=== PATIENT | female | born 1995 | race Caucasian/White ===

== ENCOUNTER → 2021-04-18 20:40 | Observation (INO) | END | disposition home or self-care (01) | LOC: 1NENULAB | PROVIDERS: ADMIT Obstetrics & Gynecology; ATTEND Obstetrics & Gynecology ==

== ENCOUNTER 2021-04-23 22:32 | Inpatient (IN) ==
[~2021-04-23 22:32] MED LIST: Famotidine 20 MG/2 ML VIAL IVP PRN; Metoclopramide 10 MG/2 ML VIAL IVP PRN; Naloxone 0.4 MG/ML INJ IVP PRN; Oxytocin 20 units/ LR 1000 mL 20 UNIT/1,000 ML BAG IVC SCH
[2021-04-23] MEDS ORDERED: Ringers Solution, Lactated 1,000 ML ONE (22:38)
[2021-04-23 23:25] LABS: Basophils # 0.1 K/mcL (0.0-0.2); Basophils % 0.4 %; Eosinophils # 0.2 K/mcL (0.0-0.6); Eosinophils % 1.5 %; Hematocrit 37.2 % (35.3-44.9); Hemoglobin 11.8 g/dL (11.5-15.4); Immature Granulocytes % 0.4 % (0-4); Lymphocytes # 2.3 K/mcL (0.6-4.6); Lymphocytes % 18.6 %; Mean Corpuscular HGB Conc 31.7 g/dL (31.6-35.5); Mean Corpuscular Hemoglobin 27.7 pg (28.0-33.3); Mean Corpuscular Volume 87.3 fL (83.0-100.0); Monocytes % 8.5 %; Neutrophils # 8.7 K/mcL (1.6-8.9); Platelet Count 243 K/mcL (140-400); Red Blood Count 4.26 M/mcL (3.82-4.97); Red Cell Distribution Width 12.7 % (11.5-14.5); Segmented Neutrophils % 70.6 %; White Blood Count 12.3 K/mcL (4.3-11.1)
[2021-04-23] MEDS ORDERED: *HR* FentaNYL (PF) 100 MCG/2 ML VIAL EP ONE (23:30)
[2021-04-23] MEDS ORDERED: Epidural Premix (fent/bupiv) 110 ML EP SCH (23:30)
[2021-04-23] MEDS ORDERED: EPHEDrine 50 MG/ML VIAL IVP PRN (23:30)
[2021-04-23] MEDS ORDERED: Ropivacaine/PF 0.2% 20 ML VIAL EP ONE (23:30)
[2021-04-23 23:31] LABS: Amphetamine Screen,Urine Negative ng/mL (Cutoff=1000); Barbiturate Screen,Urine Negative ng/mL (Cutoff=200); Benzodiazepines Screen,Urine Negative ng/mL (Cutoff=200); Cannabinoid Screen,Urine Negative ng/mL (Cutoff = 50); Cocaine Screen,Urine Negative ng/mL (Cutoff= 300); Opiate Screen,Urine Negative ng/mL (Cutoff=300); Phencyclidine Screen,Urine Negative ng/mL (Cutoff=25)
[2021-04-23] MEDS ORDERED: Epidural Premix (fent/bupiv) 110 ML EP ONE (23:36)
[2021-04-24] MEDS ORDERED: Ringers Solution, Lactated 1,000 ML ONE ×2 (00:02→01:29)
[2021-04-24] MEDS ORDERED: 0.9 % Sodium Chloride 1,000 ML ONE (00:39)
[2021-04-24] MEDS ORDERED: Lanolin 7 G OINT...G. TP PRN (08:45)
[2021-04-24] MEDS ORDERED: Measles/Mumps/Rubella Vacc 0.5 ML VIAL SQ PRN (08:45)
[2021-04-24] MEDS ORDERED: Oxytocin 20 units/ LR 1000 mL 20 UNIT/1,000 ML BAG IVC SCH (08:45)
[2021-04-24] MEDS ORDERED: Benzocaine/Menthol 56 GM AEROSOL SPRAY TP PRN (08:45)
[2021-04-24] MEDS ORDERED: Ondansetron ODT 4 MG TAB.RAPDIS SL PRN (08:45)
[2021-04-24] MEDS: Prenatal Vit/FA 1 EACH TABLET PO SCH (09:56)
[2021-04-24] MEDS: Acetaminophen 325 MG TABLET PO SCH ×2 (18:47→23:04)
[2021-04-24] MEDS: Ibuprofen 600 MG TABLET PO SCH ×3 (18:47→23:05)
[2021-04-25 05:15] VITALS: TEMP 97.9
[2021-04-25] MEDS: Ibuprofen 600 MG TABLET PO SCH ×2 (05:45→08:39)
[2021-04-25] MEDS: Acetaminophen 325 MG TABLET PO SCH (05:45)
[2021-04-25 05:51] LABS: Basophils % 0.3 %; Eosinophils # 0.2 K/mcL (0.0-0.6); Eosinophils % 1.9 %; Hematocrit 35.7 % (35.3-44.9); Hemoglobin 11.7 g/dL (11.5-15.4); Immature Granulocytes % 0.4 % (0-4); Lymphocytes # 2.6 K/mcL (0.6-4.6); Mean Corpuscular HGB Conc 32.8 g/dL (31.6-35.5); Mean Corpuscular Hemoglobin 28.5 pg (28.0-33.3); Mean Corpuscular Volume 86.9 fL (83.0-100.0); Mean Platelet Volume 10.1 fL (9.4-12.4); Monocytes # 0.6 K/mcL (0.0-1.3); Monocytes % 5.7 %; Neutrophils # 7.3 K/mcL (1.6-8.9); Platelet Count 195 K/mcL (140-400); Red Blood Count 4.11 M/mcL (3.82-4.97); Red Cell Distribution Width 12.5 % (11.5-14.5); Segmented Neutrophils % 67.7 %; White Blood Count 10.8 K/mcL (4.3-11.1)
[2021-04-25 07:40] VITALS: BP 125/87; PULSE 86; O2SAT 98
[2021-04-25] MEDS: Prenatal Vit/FA 1 EACH TABLET PO SCH (08:40)
== END 2021-04-25 11:40 | disposition home or self-care (01) | DRG 807 ==
LOC: 1NENULAB → 1NENUOBS 04-24 08:33
PROVIDERS: ADMIT Obstetrics & Gynecology; ATTEND Obstetrics & Gynecology